=== PATIENT | male | born 1965 | race Caucasian/White ===

== ENCOUNTER 2017-12-01 21:27 | Emergency (ER) | payer SELFPAY ==
[~2017-12-01] VITALS: Ht 190.5 cm; Wt 107.3 kg
[2017-12-01 21:46] VITALS: Ht 190.5 cm; Wt 107.3 kg
[2017-12-01] MEDS ORDERED: ZANTAC150 MG PO (21:47)
[2017-12-01] MEDS ORDERED: COLACE100 MG PO (21:48)
[2017-12-01] MEDS ORDERED: VIBRAMYCIN 100100 MG PO (23:34)
[2017-12-01] MEDS ORDERED: ULTRAM50 MG PO (23:34)
[2017-12-02 00:09] VITALS: BP 149/88
== END 2017-12-02 00:10 | disposition home or self-care (01) ==
LOC: D.ER 21:27
DX: L03.031 Cellulitis of right toe (principal); K21.9 Gastro-esophageal reflux disease without esophagitis; F17.200 Nicotine dependence, unspecified, uncomplicated